=== PATIENT | female | born 1980 | race African-American/Black ===

== ENCOUNTER 2017-06-26 16:01 | Emergency (ER) | payer OTHER ==
[~2017-06-26] VITALS: Ht 154.9 cm; Wt 96.0 kg
[~2017-06-26 16:01] MED LIST: DULO60CA44 PO; ERGO400C PO; ESCI20TA PO; ESOM10SU PO; FISH1CAP38 PO; MORP60CA19 PO; PRAV20TA PO; PRED5TAB48 PO; SULF1TAB48 PO; VALS80TA2 PO
[2017-06-26] MEDS ORDERED: ONDANSETRON 4MG ODT PO ONE (19:15)
[2017-06-26] MEDS ORDERED: MORPHINE SULFATE 10 MG/ML CPJ IM ONE ×2 (19:15→21:30)
[2017-06-26] MEDS ORDERED: BACITRACIN ZINC OINT UDPKT TOP ONE (19:15)
[2017-06-26] MEDS ORDERED: LIDOCAINE HCL 1% 20ML VIAL (Pyxis) INJ MC ONE (19:15)
[2017-06-26] MEDS ORDERED: VANCOMYCIN 1 G PREMIX 200 ML IV ONE (23:00)
[2017-06-26] MEDS ORDERED: PIPERACILLIN/TAZ 3.375G PREMIX 50 ML IV ONE (23:00)
[2017-06-27 00:15] LABS: BASOPHILS % 0.3 % (0.0-2.0); EOSINOPHILS % 3.6 % (0.0-5.0); HEMOGLOBIN. 9.8 g/dL (12.0-16.0); LYMPHOCYTES % 32.7 % (20.0-50.0); MEAN CORPUSCULAR HEMOGLOBIN 18.8 pg (28.0-32.0); MEAN CORPUSCULAR VOLUME 61.8 fL (81.0-99.0); MEAN PLATELET VOLUME 8.4 fl (7.4-10.4); MONOCYTES % 11.3 % (2.0-8.0); NEUTROPHILS % 52.1 % (40.0-76.0); PLATELET 339 x1000/uL (130-400); RED BLOOD CELL COUNT 5.18 mill/uL (4.2-5.4)
[2017-06-27 00:16] LABS: CHLORIDE 101 mEq/L (98-107)
[2017-06-27 00:20] LABS: HCG SCREEN NEGATIVE; INR 1.1; PROTHROMBIN TIME 11.4 sec (9.4-11.6)
[2017-06-27 00:26] LABS: PLATELET ESTIMATE NORMAL
[2017-06-27 00:28] LABS: CARBON DIOXIDE 26 mEq/L (21-32)
[2017-06-27] MEDS ORDERED: MORPHINE SULFATE 4 MG/ML CPJ (NOT FOR IM USE) IV ONE ×2 (05:15→08:15)
[2017-06-27] MEDS ORDERED: ONDANSETRON HCL 4MG/2ML VIAL IV ONE (08:15)
[2017-06-27] MEDS ORDERED: LIDOCAINE HCL/EPINEPHRINE 1%-EPI 1:100,000 20 ML VIAL INFIL ONE (11:30)
[2017-06-27 13:30] VITALS: BP 141/68
== END 2017-06-27 13:49 | disposition home or self-care (01) ==
LOC: ER 16:07
DX: L02.411 Cutaneous abscess of right axilla (principal); L02.214 Cutaneous abscess of groin; L73.2 Hidradenitis suppurativa; Z94.1 Heart transplant status; Z88.8 Allergy status to other drugs, medicaments and biological substances; Z88.6 Allergy status to analgesic agent
CPT/HCPCS: 10061; 36415; 71010; 80053; 83605; 84703; 85025; 85610; 87040; 93005; 96365; 96366; 96372; 96375; 96376; 99285; A4217; J2270; J2405; J2543; J3370; J3490; Q0162; X7700; Z7610